=== PATIENT | female | born 1965 | race Caucasian/White ===

== ENCOUNTER 2020-12-02 10:09 | Emergency (ER) | payer OTHER ==
[~2020-12-02] VITALS: Ht 170.2 cm; Wt 94.9 kg
[~2020-12-02 10:09] MED LIST: CARB200T4 PO
[2020-12-02 10:12] VITALS: BP 180/92
[2020-12-02] MEDS ORDERED: DOXE50CA PO (10:22)
--- NOTE | 2020-12-02 10:25 | NUR ---
pt is a 55f who comes in today requesting a refill of Doxepin. Her pcp's office referred her to the ER since they did not have anyone entry level installation technician that could help her with a refill. She has her mother at bedside. Provider at bedside for evaluation. Call light within reach.
--- NOTE | 2020-12-02 10:56 | NUR ---
Patient/Caregiver given discharge instructions and they have confirmed that they understand the instructions. Patient ambulatory with steady gait.
[2020-12-03] MEDS ORDERED: CITA40TA5 PO (10:10)
[2020-12-03] MEDS ORDERED: LORA0.5P PO (10:10)
== END 2020-12-02 10:58 | disposition home or self-care (01) ==
LOC: ED 10:15
DX: F32.9 Major depressive disorder, single episode, unspecified (principal); Z76.0 Encounter for issue of repeat prescription; F41.9 Anxiety disorder, unspecified; G47.00 Insomnia, unspecified
CPT/HCPCS: 99281

== ENCOUNTER 2020-12-03 08:51 | Emergency (ER) | payer OTHER ==
[~2020-12-03] VITALS: Ht 170.2 cm; Wt 94.0 kg
[~2020-12-03 08:51] MED LIST changes: +DOXE50CA PO
--- NOTE | 2020-12-03 09:45 | NUR ---
Pt found lying L lateral on bed, rocking back and forth, making a self-soothing humming-like noise. Pt states she is having a relapse of a trauma and has PTSD. When asked what triggered her PTSD she states she is unsure but that she cannot stop rocking back and forth for some reason. Verbal comfort measures given, ensured pt is a position of comfort for her, lights left dimmed, and warm blanket provided with call light in reach. Visitor at bedside.
[2020-12-03] MEDS ORDERED: LORazepam 1MG TABLET ONE (09:53)
--- NOTE | 2020-12-03 09:58 | NUR ---
Pt given Ativan PO as ordered at this time.
[2020-12-03] MEDS ORDERED: LORazepam 1MG TABLET PO ONE (10:00)
[2020-12-03] MEDS ORDERED: CITA40TA5 PO (10:10)
[2020-12-03] MEDS ORDERED: LORA0.5P PO (10:10)
--- NOTE | 2020-12-03 10:14 | NUR ---
Pt lying supine, no longer rocking, and states she cannot "do this up and down all the time" but denies feeling of suicidal intent/ideation.
--- NOTE | 2020-12-03 10:54 | NUR ---
Pt reassessed after medical technician and found able to lie still on L side without humming-noise, easily awakens and reports feeling much better. VS reassessed and lights left dimmed and call light in reach.
--- NOTE | 2020-12-03 11:40 | NUR ---
Visitor returned to check on pt and sit in room with her. Chart marked as recheck at this time.
--- NOTE | 2020-12-03 11:44 | NUR ---
MD at bedside for reassessment and discussion of plan of care at this time.
[2020-12-03 12:14] VITALS: BP 154/89
== END 2020-12-03 12:17 | disposition home or self-care (01) ==
LOC: ED 09:23
DX: F41.1 Generalized anxiety disorder (principal); R06.4 Hyperventilation; F39 Unspecified mood [affective] disorder
CPT/HCPCS: 99283